=== PATIENT | female | born 1985 | race Caucasian/White ===

== ENCOUNTER 2018-02-16 08:15 | Inpatient (IN) | payer OTHER ==
[~2018-02-16] VITALS: Ht 160 cm; Wt 94.8 kg
[2018-02-16] MEDS ORDERED: VITAMIN D310000 UNIT PO (10:38)
[2018-02-16] MEDS ORDERED: ATORVASTATIN CA20 MG PO (10:39)
[2018-02-16] MEDS ORDERED: IRON325 MG PO (10:41)
== END 2018-02-24 10:24 | DRG 743 ==
LOC: EDSTATUS 08:15 → ADM 08:15 → OB/GYN 02-21 05:59 → O/R 02-21 05:59 → SURH 02-21 07:00 → OB/GYN 02-21 11:13
PROVIDERS: Obstetrics & Gynecology
PROC: 0DNW0ZZ Release Peritoneum, Open Approach (ICD-10-PCS; 2018-02-21)
PROC: 0UB90ZZ Excision of Uterus, Open Approach (ICD-10-PCS; principal; 2018-02-21 07:00)
DX: D25.1 Intramural leiomyoma of uterus (principal); N73.6 Female pelvic peritoneal adhesions (postinfective)